=== PATIENT | male | born 1950 | race African-American/Black ===

== ENCOUNTER 2021-05-21 09:00 | Observation (INO) | payer MEDICARE ==
[~2021-05-21] VITALS: Ht 182.9 cm; Wt 104.3 kg
[~2021-05-21 09:00] MED LIST: AMLO-259 PO; LISI40TA9 PO; METH500T22 PO; METO-409 PO; MULT-1203 PO; TORS10TA18 PO
[2021-05-21 09:42] LABS: BASOPHILS % (AUTO) 0.4 % (0.0-5.0); EOSINOPHILS % (AUTO) 4.7 % (0.0-8.0); HEMATOCRIT 33.6 % (42-54); LYMPHOCYTES % (AUTO) 19.4 % (21.0-51.0); MEAN CORPUSCULAR HEMOGLOBIN 27.2 pg (27.0-33.0); MEAN CORPUSCULAR HGB CONC 30.4 g/dL (32.0-36.0); MEAN CORPUSCULAR VOLUME 89.6 fL (79-99); MONOCYTES % (AUTO) 9.5 % (3.0-13.0); NEUTROPHILS % (AUTO) 65.5 % (40.0-77.0); PLATELET COUNT (AUTO) 186 K/uL (130-400); RED BLOOD CELL COUNT(AUTO) 3.75 MIL/uL (4.50-6.20); RED CELL DISTRIBUTION WIDTH 15.9 % (11.0-15.5); WHITE BLOOD COUNT (AUTO) 8.3 K/uL (4.8-10.8)
[2021-05-21 09:57] LABS: CREATININE 5.8 mg/dL (0.5-1.5); POTASSIUM 4.6 mmol/L (3.5-5.1)
[2021-05-25 09:30] VITALS: BP 140/72
[2021-05-25] MEDS ORDERED: FERR-82 PO (14:09)
[2021-05-25] MEDS ORDERED: ALLO100T PO (14:09)
[2021-05-26] VITALS (24 sets, daily range): BP systolic 118–158; BP diastolic 53–79
[2021-05-26] MEDS: CEFAZOLIN SODIUM 1 GM VIAL IVP SCH ×4 (05:00→19:30)
[2021-05-26] MEDS ORDERED: MORPHINE PF 100MG/10ML AMP IV ONE (06:32)
[2021-05-26] MEDS ORDERED: CEFAZOLIN SODIUM 1 GM VIAL ONE (06:32)
[2021-05-26] MEDS ORDERED: THROMBIN-JMI 20000 UNIT KIT TP ONE (06:33)
[2021-05-26] MEDS ORDERED: 0.9%NACL 1000ML 0 ML IV ONE (06:35)
[2021-05-26] MEDS ORDERED: 0.9%NACL 10ML VIAL ONE (06:35)
[2021-05-26] MEDS ORDERED: LACTATED RINGERS 1000ML 1,000 ML IV ONE (06:38)
[2021-05-26] MEDS ORDERED: LIDOCAINE PF 100MG/5ML (2%) SYRINGE 5ML ONE (06:49)
[2021-05-26] MEDS ORDERED: SUCCINYLCHOLINE CHLORIDE 20 MG/ML 10 ML VIAL ONE (06:49)
[2021-05-26] MEDS ORDERED: ONDANSETRON 4MG INJ ONE (06:50)
[2021-05-26] MEDS ORDERED: MIDAZOLAM HCL 1 MG/ML 2ML VIAL ONE (06:50)
[2021-05-26] MEDS ORDERED: PROPOFOL 10 MG/ML 20ML VIAL IV ONE (06:50)
[2021-05-26] MEDS ORDERED: DEXAMETHASONE SOD PHOSPHATE 10MG/ML 1ML VIAL ONE ×2 (06:50→06:55)
[2021-05-26] MEDS ORDERED: NEOSTIGMINE 5MG/5ML SYR IV ONE (06:50)
[2021-05-26] MEDS ORDERED: GLYCOPYRROLATE 1 MG/5 ML SYRINGE ONE ×2 (06:50→10:52)
[2021-05-26] MEDS ORDERED: ROCURONIUM 10MG/1ML SYR 10 MG/ML ML ONE ×2 (06:51→07:17)
[2021-05-26] MEDS ORDERED: FENTANYL CITRATE PF 50 MCG/1 ML 2ML VIAL ONE (06:51)
[2021-05-26] MEDS ORDERED: FISH1CAP27 PO (06:53)
[2021-05-26] MEDS ORDERED: HYDR100T27 PO (06:53)
[2021-05-26] MEDS ORDERED: SODIUM BICARBONATE PO (06:53)
[2021-05-26] MEDS ORDERED: TERA10CA4 PO (06:53)
[2021-05-26] MEDS: BUPIVACAINE/EPI/PF 0.25% 30ML VIAL IJ SCH ×2 (07:00→10:42)
[2021-05-26] MEDS ORDERED: KETAMINE 50MG/ML SYRINGE 50 MG/ML DISP.SYRIN IV ONE (07:11)
[2021-05-26 07:15] LABS: HEMATOCRIT 31.3 % (42-54); MEAN CORPUSCULAR HEMOGLOBIN 27.2 pg (27.0-33.0); MEAN CORPUSCULAR VOLUME 87.9 fL (79-99); RED BLOOD CELL COUNT(AUTO) 3.56 MIL/uL (4.50-6.20); RED CELL DISTRIBUTION WIDTH 15.8 % (11.0-15.5)
[2021-05-26 07:27] LABS: CREATININE 5.2 mg/dL (0.5-1.5); POTASSIUM 4.3 mmol/L (3.5-5.1)
[2021-05-26] MEDS ORDERED: EPHEDRINE SULFATE 50 MG/ML AMPULE ONE (08:29)
[2021-05-26] MEDS ORDERED: PHENYLEPHRINE HCL 10 MG/ML 1ML VIAL IV ONE (09:01)
[2021-05-26] MEDS ORDERED: SUGAMMADEX SODIUM 200 MG/2 ML VIAL IV ONE (10:53)
[2021-05-26] MEDS: LACTATED RINGERS 1000ML 1,000 ML IV SCH (11:30)
[2021-05-26] MEDS ORDERED: MORPHINE 2 MG SYG IVP PRN (11:30)
[2021-05-26] MEDS ORDERED: 0.9%NACL 10ML VIAL IVP PRN (11:30)
[2021-05-26] MEDS: DEXAMETHASONE SOD PHOSPHATE 4 MG/ML 1ML VIAL IVP SCH ×3 (11:30→23:50)
[2021-05-26] MEDS ORDERED: PROMETHAZINE HCL 25 MG/ML 1ML AMPULE IM PRN (11:30)
[2021-05-26] MEDS: HYDROCODONE/ACETAMINOPHEN 5/325 MG TAB PO PRN ×2 (15:19→21:10)
[2021-05-26] MEDS: PHARMACY COMMUNICATION MISC SCH (17:00)
[2021-05-26] MEDS ORDERED: HYDRALAZINE 25MG TABLET PO SCH (21:00)
[2021-05-26] MEDS ORDERED: TERAZOSIN 5MG CAP PO SCH (21:00)
[2021-05-26] MEDS ORDERED: SODIUM BICARBONATE 10 GM PO SCH (21:00)
[2021-05-26] MEDS ORDERED: FISH OIL 1000 MG/CAP PO SCH (21:00)
[2021-05-26] MEDS ORDERED: FERROUS SULFATE 325 MG TABLET.DR PO SCH (21:00)
[2021-05-27 00:06] VITALS: BP 128/62
[2021-05-27] MEDS: LACTATED RINGERS 1000ML 1,000 ML IV SCH (00:31)
[2021-05-27 03:50] VITALS: BP 134/66
[2021-05-27] MEDS: DEXAMETHASONE SOD PHOSPHATE 4 MG/ML 1ML VIAL IVP SCH (05:05)
[2021-05-27 07:00] VITALS: BP 143/84
[2021-05-27] MEDS: PHARMACY COMMUNICATION MISC SCH ×2 (07:00→07:13)
[2021-05-27] MEDS ORDERED: METOPROLOL SUCCINATE 50 MG TAB.SR.24H PO SCH (09:00)
[2021-05-27] MEDS ORDERED: TORSEMIDE 20 MG TAB PO SCH (09:00)
[2021-05-27] MEDS ORDERED: AMLODIPINE 5 MG TAB PO SCH (09:00)
[2021-05-27] MEDS ORDERED: LISINOPRIL 40 MG TABLET PO SCH (09:00)
[2021-05-27] MEDS ORDERED: ALLOPURINOL 100 MG TABLET PO SCH (09:00)
[2021-05-27] MEDS ORDERED: METHYLDOPA 500 MG PO SCH (09:00)
[2021-05-27] MEDS ORDERED: MULTIVITAMIN TABLET PO SCH (09:00)
[2021-05-27] MEDS ORDERED: ATORVASTATIN 40 MG TABLET PO SCH (09:00)
== END 2021-05-27 09:00 | disposition home or self-care (01) ==
LOC: DAHIP 05-26 05:58 → 4AH 05-26 12:18
PROVIDERS: ADMIT Neurological Surgery; ATTEND Neurological Surgery
DX: M48.061 Spinal stenosis, lumbar region without neurogenic claudication (principal); Z20.822 Contact with and (suspected) exposure to COVID-19; M54.16 Radiculopathy, lumbar region; M53.86 Other specified dorsopathies, lumbar region; M67.40 Ganglion, unspecified site; I13.11 Hypertensive heart and chronic kidney disease without heart failure, with stage 5 chronic kidney disease, or end stage renal disease; N18.6 End stage renal disease; Z99.2 Dependence on renal dialysis; Z79.899 Other long term (current) drug therapy
CPT/HCPCS: 36415 ×2; 63047; 63048; 63267; 72020; 80048 ×2; 85025; 85027; 87635; 88304; 96374; 96375; 96376 ×2; A4215; A4221; A4222; A4223; A4344; A4649 ×3; A4663; G0378 ×21; G0379; J0330; J0690 ×3; J1100 ×6; J2001; J2250; J2274; J2370; J2405; J2704; J2710; J3010; J3490 ×5; J7030; J7120 ×4

== ENCOUNTER → 2023-09-26 | Outpatient (CLI) | payer MEDICARE ==
[~2023-09-26] MED LIST changes: +ALLO100T PO; +FERR-82 PO; +FISH1CAP27 PO; +HYDR100T27 PO; +LIDOCAINE HCL 4% LTA SOL 4 ML VIAL TP ONE; +SODIUM BICARBONATE PO; +TERA10CA4 PO
== END | disposition home or self-care (01) ==
LOC: WHH 09:40
PROVIDERS: ATTEND Nurse Practitioner Family
DX: L02.211 Cutaneous abscess of abdominal wall (principal); L98.8 Other specified disorders of the skin and subcutaneous tissue; I12.0 Hypertensive chronic kidney disease with stage 5 chronic kidney disease or end stage renal disease; N18.6 End stage renal disease; E78.5 Hyperlipidemia, unspecified; E55.9 Vitamin D deficiency, unspecified; F17.200 Nicotine dependence, unspecified, uncomplicated; Z85.46 Personal history of malignant neoplasm of prostate; Z99.2 Dependence on renal dialysis
CPT/HCPCS: 87070; G0463; A6248; A4450

== ENCOUNTER → 2023-09-29 | Outpatient (CLI) | payer MEDICARE ==
[~2023-09-29] MED LIST changes: -LIDOCAINE HCL 4% LTA SOL 4 ML VIAL TP ONE
== END | disposition home or self-care (01) ==
LOC: RAH 10:22
PROVIDERS: ATTEND Nurse Practitioner Family
DX: L02.211 Cutaneous abscess of abdominal wall (principal)
CPT/HCPCS: 76705

== ENCOUNTER → 2023-10-03 | Outpatient (CLI) | payer MEDICARE ==
[~2023-10-03] MED LIST changes: +LIDOCAINE HCL 4% LTA SOL 4 ML VIAL TP ONE
== END | disposition home or self-care (01) ==
LOC: WHH 08:52
PROVIDERS: ATTEND Nurse Practitioner Family
DX: L02.211 Cutaneous abscess of abdominal wall (principal); L98.8 Other specified disorders of the skin and subcutaneous tissue; I12.0 Hypertensive chronic kidney disease with stage 5 chronic kidney disease or end stage renal disease; N18.6 End stage renal disease; E78.5 Hyperlipidemia, unspecified; E55.9 Vitamin D deficiency, unspecified; F17.200 Nicotine dependence, unspecified, uncomplicated; Z85.46 Personal history of malignant neoplasm of prostate; Z99.2 Dependence on renal dialysis
CPT/HCPCS: G0463

== ENCOUNTER → 2023-10-17 | Outpatient (CLI) | payer MEDICARE | END | disposition home or self-care (01) | LOC: WHH 08:42 | PROVIDERS: ATTEND Nurse Practitioner Family | DX: L02.211 Cutaneous abscess of abdominal wall (principal); S31.105D Unspecified open wound of abdominal wall, periumbilic region without penetration into peritoneal cavity, subsequent encounter; I12.0 Hypertensive chronic kidney disease with stage 5 chronic kidney disease or end stage renal disease; N18.4 Chronic kidney disease, stage 4 (severe); E78.5 Hyperlipidemia, unspecified; E55.9 Vitamin D deficiency, unspecified; F17.200 Nicotine dependence, unspecified, uncomplicated; Z85.46 Personal history of malignant neoplasm of prostate; Z99.2 Dependence on renal dialysis; Z79.899 Other long term (current) drug therapy; X58.XXXD Exposure to other specified factors, subsequent encounter | CPT/HCPCS: G0463 ==

== ENCOUNTER → 2023-10-24 | Outpatient (CLI) | payer MEDICARE ==
[~2023-10-24] MED LIST changes: -LIDOCAINE HCL 4% LTA SOL 4 ML VIAL TP ONE
== END | disposition home or self-care (01) ==
LOC: WHH 08:01
PROVIDERS: ATTEND Nurse Practitioner Family
DX: L02.211 Cutaneous abscess of abdominal wall (principal); S31.105D Unspecified open wound of abdominal wall, periumbilic region without penetration into peritoneal cavity, subsequent encounter; I12.9 Hypertensive chronic kidney disease with stage 1 through stage 4 chronic kidney disease, or unspecified chronic kidney disease; N18.4 Chronic kidney disease, stage 4 (severe); E78.5 Hyperlipidemia, unspecified; E55.9 Vitamin D deficiency, unspecified; F17.200 Nicotine dependence, unspecified, uncomplicated; Z85.46 Personal history of malignant neoplasm of prostate; Z99.2 Dependence on renal dialysis; Z79.899 Other long term (current) drug therapy; X58.XXXD Exposure to other specified factors, subsequent encounter
CPT/HCPCS: G0463; A4450